=== PATIENT | male | born 1970 | race Caucasian/White ===

== ENCOUNTER 2020-12-20 19:03 | Emergency (ER) | payer OTHER, SELFPAY ==
[2020-12-20 19:13] VITALS: BP 128/70; PULSE 70; RESP 16; TEMP 36.6; O2SAT 98; BMI 28.3
[2020-12-20] MEDS: Diphth,Pertus(ACell),Tet Adult 0.5 ML SYRINGE IM (21:05)
--- NOTE | 2020-12-20 21:15 | ED.WOUNDLAC ---
HPI - Wound/Laceration General Chief Complaint: Wound/Laceration Stated Complaint: Hand lac Time Seen by Provider: 12/20/20 20:47 History of Present Illness HPI narrative: Patient complains of small laceration to the volar right wrist from a chisel, no other injury no numbness weakness or tingling no joint pains Related Data Allergies Allergy/AdvReac Type Severity Reaction Status Date / Time No Known Allergies Allergy Verified 12/20/20 19:12 Review of Systems Review of Systems: Positive for right wrist laceration Negatives are no headache no neck pain no back pain no numbness weakness or tingling no joint pains Yes all other systems are reviewed and are negative PMFSH Past Medical History Source: nursing notes reviewed Surgical History (Updated 12/20/20 @ 19:14 by Nati Mejia) H/O heart artery stent Social History Social History Advance Directives: No Physical Exam Vital Signs: Vital Signs: Last Vital Signs Temp 97.8 F 12/20/20 19:13 Pulse 70 12/20/20 19:13 Resp 16 12/20/20 19:13 BP 128/70 12/20/20 19:13 Pulse Ox 98 12/20/20 19:13 Body Mass Index 28.3 General appearance no acute distress Head is normocephalic atraumatic Neck is supple Respiratory no distress Extremities full range of motion x4 The right wrist there is a 1 cm volar superficial laceration which is not bleeding, neurovascular intact distal and full range of motion without discomfort in the rest Course Course Course Narrative: 1 cm superficial laceration of the right wrist is cleansed and irrigated with normal saline and closed with Steri-Strips Discharge Plan Discharge Clinical Impression: Laceration Patient Disposition: Home, Self-Care Additional Instructions: Small cut was cleaned and closed with Steri-Strips You get a tetanus shot Remove Steri-Strips in 2 or 3 days Return any time for redness swelling any sign of infection Interventions: ED Discharge Assessment Last Done: 12/20/20 21:22 Discharge Date/Time: 12/20/20 21:41
== END 2020-12-20 21:41 | disposition home or self-care (01) ==
PROVIDERS: Emergency Provider Emergency Medicine; PCP Physician Assistant Medical
DX: S61.511A Laceration without foreign body of right wrist, initial encounter (principal); W27.0XXA Contact with workbench tool, initial encounter; Y93.9 Activity, unspecified; Y92.9 Unspecified place or not applicable; Y99.9 Unspecified external cause status
CPT/HCPCS: 90471; 90715; 99284

== ENCOUNTER 2021-07-08 21:31 | Emergency (ER) | payer OTHER, SELFPAY ==
--- NOTE | ~2021-07-08 | XR_ITS ---
EXAMINATION: XR CHEST CLINICAL INFORMATION: Chest pain. COMPARISON: Chest radiographs dated 07/19/2008. TECHNIQUE: Frontal view of the chest was obtained. FINDINGS: No significant abnormality is noted involving the heart, lungs, mediastinum, bony thorax or soft tissues. XR/XR chest 1V IMPRESSION: No acute cardiopulmonary process.
--- NOTE | 2021-07-08 21:34 | ECG_ITS ---
Test Reason : CHEST PAIN Blood Pressure : / mmHG Vent. Rate : 075 BPM Atrial Rate : 075 BPM P-R Int : 138 ms QRS Dur : 086 ms QT Int : 410 ms P-R-T Axes : 067 -14 018 degrees QTc Int : 457 ms Normal sinus rhythm Normal ECG No previous ECGs available Referred By: Generic ED Physician Electronically Signed By:VITALIY ALVAREZ MD
[2021-07-08 21:42] VITALS: BP 171/94; PULSE 69; RESP 20; TEMP 36.6; O2SAT 98; BMI 29.0
[2021-07-08 22:03] LABS: Eosinophils Absolute Auto 0.1 X10*3/uL (0.0-0.4); Eosinophils Percent Auto 1.4 % (0-4); Imm Gran Abs Auto 0.03 X10*3/uL (0.00-0.03); Imm Gran Pct Auto 0.4 % (0.0-0.4); MANUAL DIFF FLAG SCAN; Mean Corpuscular Volume 90.4 fL (80.0-98.0); Monocytes Absolute Auto 0.5 X10*3/uL (0.1-1.2); Monocytes Percent Auto 6.7 % (2-11); PLT CLUMP 1; SCAN SMEAR FLAG 1
[2021-07-08 22:05] LABS: Basophils Percent Auto 0.3 % (0-2); Hematocrit 34.7 % (42.0-52.0); Lymphocytes Absolute Auto 1.9 X10*3/uL (1.2-4.9); Lymphocytes Percent Auto 24.4 % (20-40); Mean Corpuscular HGB Conc 34.6 g/dl (31.0-36.0); Mean Corpuscular Hemoglobin 31.3 pg (27.0-33.0); Mean Platelet Volume 11.4 fL (9.4-12.4); Neutrophils Absolute Auto 5.3 x10*3/uL (2.0-8.3); Neutrophils Percent Auto 66.8 % (45-73); Red Blood Count 3.84 X10*6/uL (4.60-5.80); Red Cell Distribution Width 13.9 % (11.0-16.0)
[2021-07-08 22:19] LABS: Anion Gap 12 (12-20); Blood Urea Nitrogen 8 mg/dL (9-16); Calcium 8.9 mg/dL (8.4-10.2); Carbon Dioxide 26 mmol/L (22-29); Chloride 98 mmol/L (96-108); Creatinine Clr Calc Pharmacy 96.3; Estimated Glomerular Filt Rate > 60; Glucose Random 223 mg/dL (60-115); Potassium 3.5 mmol/L (3.3-5.1); Sodium 132 mmol/L (135-145)
[2021-07-08 22:22] LABS: Platelet Count 84 X10*3/uL (160-400)
[2021-07-08 22:26] LABS: Troponin-I High Sensitivity 4.9 ng/L (<3.5-35.0)
[2021-07-08 22:29] LABS: SLIDE REVIEW VERIFIED
[2021-07-09 01:10] VITALS: BP 155/81; PULSE 70; RESP 18; O2SAT 99
[2021-07-09 01:48] LABS: Alanine Aminotransferase 34 U/L (0-40); Albumin Level 4.1 g/dL (3.5-5.0); Alkaline Phosphatase 139 U/L (39-117); Aspartate Amino Transferase 28 U/L (5-37); Bilirubin Direct 0.5 mg/dL (0.0-0.5); Lipase 97 U/L (8-78); Total Protein 7.4 g/dL (6.5-8.0)
[2021-07-09] MEDS: Lidocaine HCl Viscous 2 % 15 ML SOLUTION 10 ML MUCOUS MEM (02:02)
[2021-07-09] MEDS: Magnesium Hydrox/Alum Hydrox 30 ML ORAL.SUSP PO (02:02)
[2021-07-09 02:09] LABS: Troponin-I High Sensitivity 6.9 ng/L (<3.5-35.0)
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
[2021-07-09 02:42] VITALS: BP 150/90; PULSE 75; RESP 16; TEMP 37.3; O2SAT 99
== END 2021-07-09 03:43 | disposition home or self-care (01) ==
PROVIDERS: Emergency Provider Student in an Organized Health Care Education/Training Program
DX: R07.89 Other chest pain (principal); K85.90 Acute pancreatitis without necrosis or infection, unspecified; K21.9 Gastro-esophageal reflux disease without esophagitis; I25.10 Atherosclerotic heart disease of native coronary artery without angina pectoris; Z79.899 Other long term (current) drug therapy; Z79.82 Long term (current) use of aspirin; Z87.891 Personal history of nicotine dependence
CPT/HCPCS: 36415; 71045; 80048; 80076; 83690; 84484; 85025; 93005; 99284; 99285

== ENCOUNTER 2022-06-12 20:48 | Emergency (ER) | payer OTHER, SELFPAY ==
--- NOTE | ~2022-06-12 | US_ITS ---
EXAMINATION: US SCROTUM CLINICAL INFORMATION: Left testicular swelling and pain. COMPARISON: None TECHNIQUE: A sonogram of the scrotum was performed assessing merlos-scale appearance and color Doppler flow. Spectral Doppler analysis of the arterial and venous flow were performed in the testes bilaterally. FINDINGS: RIGHT: Right testicle measures 3.7 x 1.8 x 2.4 cm, volume 8.6 mL. There is heterogeneous echotexture to the testicle but no discrete focal testicular parenchymal lesions are visualized. Spectral Doppler analysis of the arterial and venous flow is normal in the right testis. Right epididymal head is normal in size. No right hydrocele or varicocele is seen. Right epididymal Doppler flow is normal. Tiny scrotal bryan measuring 3 mm in size incidentally seen in the right scrotum. LEFT: Left testicle measures 4.9 x 2.1 x 3.1 cm, volume 15 mL. No focal testicular parenchymal lesions are visualized. Spectral Doppler analysis of the arterial and venous flow is normal in the left testis. Left epididymal head is normal in size with a 0.3 cm tiny epididymal cyst incidentally noted. No left hydrocele or varicocele is seen. Left epididymal Doppler flow is normal. US/US scrotum doppler IMPRESSION: No acute abnormality seen in the left testicle. The right testicle is heterogeneous echotexture and somewhat atrophic possibly due to old injury or infection.
--- NOTE | ~2022-06-12 | US_ITS ---
EXAMINATION: US SCROTUM CLINICAL INFORMATION: Left testicular swelling and pain. COMPARISON: None TECHNIQUE: A sonogram of the scrotum was performed assessing merlos-scale appearance and color Doppler flow. Spectral Doppler analysis of the arterial and venous flow were performed in the testes bilaterally. FINDINGS: RIGHT: Right testicle measures 3.7 x 1.8 x 2.4 cm, volume 8.6 mL. There is heterogeneous echotexture to the testicle but no discrete focal testicular parenchymal lesions are visualized. Spectral Doppler analysis of the arterial and venous flow is normal in the right testis. Right epididymal head is normal in size. No right hydrocele or varicocele is seen. Right epididymal Doppler flow is normal. Tiny scrotal bryan measuring 3 mm in size incidentally seen in the right scrotum. LEFT: Left testicle measures 4.9 x 2.1 x 3.1 cm, volume 15 mL. No focal testicular parenchymal lesions are visualized. Spectral Doppler analysis of the arterial and venous flow is normal in the left testis. Left epididymal head is normal in size with a 0.3 cm tiny epididymal cyst incidentally noted. No left hydrocele or varicocele is seen. Left epididymal Doppler flow is normal. US/US scrotum IMPRESSION: No acute abnormality seen in the left testicle. The right testicle is heterogeneous echotexture and somewhat atrophic possibly due to old injury or infection.
--- NOTE | 2022-06-12 20:55 | ED.MALEGU ---
HPI - Male Genitourinary General Chief complaint: General Medical <LORENA Culp - Last Filed: 06/12/22 20:59> Stated complaint: Testicular pain and swelling <LORENA Culp - Last Filed: 06/12/22 20:59> Time Seen by Provider: 06/13/22 05:03 <LORENA Culp - Last Filed: 06/12/22 20:59> Source: patient <Patrick Fuentes MD - Last Filed: 06/13/22 05:16> Mode of arrival: ambulatory <Patrick Fuentes MD - Last Filed: 06/13/22 05:16> Limitations: no limitations <Patrick Fuentes MD - Last Filed: 06/13/22 05:16> History of Present Illness HPI Narrative: 52-year-old male presents with left testicular pain. Symptoms started yesterday. The symptoms are constant. There is no clear relieving or exacerbating features. He denies any dysuria, frequency, urgency, hematuria. He rates the pain as a 1 to 2/10. The pain does not radiate. It is not associated with nausea or vomiting. He notes that his left testicle is always been enlarged compared to his right. Patient denies a previous history of such symptoms. <Patrick Fuentes MD - Last Filed: 06/13/22 05:16> Related Data Home medications: Home Medications Medication Instructions Recorded Confirmed aspirin 81 mg tablet,delayed 1 tab PO DAILY 07/08/21 07/08/21 release atorvastatin 40 mg tablet 1 tab PO DAILY 07/08/21 07/08/21 clopidogrel 75 mg tablet 1 tab PO DAILY 07/08/21 07/08/21 escitalopram oxalate 10 mg tablet 1 tab PO DAILY 07/08/21 07/08/21 famotidine 20 mg tablet 1 tab PO BID 07/08/21 07/08/21 furosemide 20 mg tablet 1 tab PO DAILY 07/08/21 07/08/21 gabapentin 800 mg tablet 1 tab PO TID 07/08/21 07/08/21 isosorbide mononitrate 30 mg 3 tab PO DAILY 07/08/21 07/08/21 tablet,extended release 24 hr spironolactone 50 mg tablet 1 tab PO DAILY 07/08/21 07/08/21 <LORENA Culp - Last Filed: 06/12/22 20:59> Allergies/Adverse reactions: Allergies Allergy/AdvReac Type Severity Reaction Status Date / Time insect venom [insect bites] Allergy Swelling Verified 06/12/22 21:00 poison shama extract Allergy Swelling Verified 06/12/22 21:00 <LORENA Culp - Last Filed: 06/12/22 20:59> Review of Systems Review of Systems: CONSTITUTIONAL: Denies weight loss, fever and chills. HEENT: Denies changes in vision and hearing. RESPIRATORY: Denies SOB and cough. CV: Denies palpitations no CP. GI: Denies abdominal pain, nausea, vomiting and diarrhea. : Denies dysuria and urinary frequency. MSK: Denies myalgia and joint pain. SKIN: Denies rash and pruritus. NEUROLOGICAL: Denies headache and syncope. PSYCHIATRIC: Denies recent changes in mood. Denies anxiety and depression. All other ROS are negative unless in HPI <Patrick Fuentes MD - Last Filed: 06/13/22 05:16> [facility] Past Medical History Medical History: Medical History Diabetes Hyperlipidemia Hypertension Peripheral neuropathy Sciatic nerve pain <LORENA Culp - Last Filed: 06/12/22 20:59> Surgical History: Surgical History H/O heart artery stent <LORENA Culp - Last Filed: 06/12/22 20:59> Social History Social History: Social History Alcohol intake: unknown Patient Tobacco Use Status: Former Tobacco user Substance Use Type: Marijuana Advance Directives: No Advance Directives Information Provided: No <LORENA Culp - Last Filed: 06/12/22 20:59> Physical Exam Vital Signs: Vital Signs: Last Vital Signs Temp 98.7 F 06/12/22 20:56 Pulse 76 06/12/22 20:56 Resp 18 06/12/22 20:56 BP 144/66 H 06/12/22 20:56 Pulse Ox 98 06/12/22 20:56 O2 Del Method 06/12/22 20:56 BMI result Body Mass Index 28.2 <LORENA Culp - Last Filed: 06/12/22 20:59> Vital Signs: Last Vital Signs Temp 98.7 F 06/12/22 20:56 Pulse 76 06/12/22 20:56 Resp 18 06/12/22 20:56 BP 144/66 H 06/12/22 20:56 Pulse Ox 98 06/12/22 20:56 O2 Del Method 06/12/22 20:56 BMI result Body Mass Index 28.2 GEN: Well developed, no acute distress, alert, oriented HEENT: Normocephalic, atraumatic, normal external ears, nose appears normal Eyes: Normal to appearance Neck: Supple, no lymphadenopathy Respiratory: Talks in complete sentences, no respiratory distress Extremities: No clubbing cyanosis or edema Neurologic: No focal neurologic deficits, cranial nerves 2-12 intact, gait normal Skin: No rash : Left testicle enlarged compared to right. Positive bilateral cremasteric reflexes. No tenderness. No lymphadenopathy. No evidence of hernia. No penile discharge. Otherwise normal exam <Patrick Fuentes MD - Last Filed: 06/13/22 05:16> Course Course Course Narrative: [id number] 52-year-old male presenting to the ER with complaints left testicular swelling that has been present for the past few years although over the past few days has developed some pain. Patient is concern for his testicle being twisted such as testicular torsion. His on told him to have blood work and imaging obtained. He he denies any thoughts of STDs. Denies fevers, nausea/vomiting, flank pain, back pain, abnormal discharge, dysuria hematuria, abnormal lesions to the penile area or any other symptoms complaints or concerns at this time Plan: Will obtain labs, UA, gonorrhea chlamydia urine, ultrasound of testicle patient will be sent back to the waiting room to be evaluated in the ED. <LORENA Culp - Last Filed: 06/12/22 20:59> Reevaluation(s) Reevaluation #1: 52-year-old male presents with left testicular pain. Examination revealed positive bilateral cremasteric reflexes. He had enlarged left testicle compared to right. Nontender. The rest exam is unremarkable. Ultrasound did not demonstrate any evidence of torsion although patient certainly could be sorting and the charting. This was discussed with the patient on reasons to return as well as recent follow-up with a urologist. Patient denied any traumatic injury or falls. At this time, the workup is complete. Will provide patient with Tylenol and ibuprofen and discharged with urology follow-up. <Patrick Fuentes MD - Last Filed: 06/13/22 05:16> Time: 05:11 <Patrick Fuentes MD - Last Filed: 06/13/22 05:16> Medical Decision Making Medical Decision Making [facility] Narrative: 52-year-old male presents with left testicular pain. Patient will have an ultrasound, laboratory analysis to help differentiate from multiple possible diagnoses. <Patrick Fuentes MD - Last Filed: 06/13/22 05:16> Differential Diagnosis Differential Diagnoses: The differential diagnosis associated with the presentation includes (Torsion, orchitis, urethritis, hernia, epididymitis) <Patrick Fuentes MD - Last Filed: 06/13/22 05:16> Left testicular pain <Patrick Fuentes MD - Last Filed: 06/13/22 05:16> Lab Data [facility] Lab Attestation statement: I reviewed the patient's lab results. <Patrick Fuentes MD - Last Filed: 06/13/22 05:16> Result Diagrams: 06/12/22 21:59 06/12/22 21:59 <LORENA Culp - Last Filed: 06/12/22 20:59> Labs: Lab Results 06/12/22 06/12/22 06/12/22 Range/Units 21:59 21:59 21:59 WBC 8.0 (4.8-10.8) X10*3/uL RBC 3.95 L (4.60-5.80) X10*6/uL Hgb 12.0 L (14.0-18.0) g/dl Hct 35.5 L (42.0-52.0) % MCV 89.9 (80.0-98.0) fL MCH 30.4 (27.0-33.0) pg MCHC 33.8 (31.0-36.0) g/dl RDW 13.6 (11.0-16.0) % Plt Count 83 L (160-400) X10*3/uL MPV 11.7 (9.4-12.4) fL Immature Gran % (Auto) 0.5 H (0.0-0.4) % Neut % (Auto) 65.4 (45-73) % Lymph % (Auto) 26.5 (20-40) % Hendry % (Auto) 5.5 (2-11) % Eos % (Auto) 1.6 (0-4) % Baso % (Auto) 0.5 (0-2) % Lymph # (Auto) 2.1 (1.2-4.9) X10*3/uL Hendry # (Auto) 0.4 (0.1-1.2) X10*3/uL Eos # (Auto) 0.1 (0.0-0.4) X10*3/uL Baso # (Auto) 0.0 (0.0-0.2) X10*3/uL Abs Immat Gran (auto) 0.04 H (0.00-0.03) X10*3/uL Absolute Neuts (auto) 5.3 (2.0-8.3) x10*3/uL Absolute Nucleated RBC 0.000 (0.0-0.012) X10*3/uL Nucleated RBC % (auto) 0.0 (0.0-0.2) /100WBC PT 15.5 H (10.0-13.1) SEC INR 1.3 H (0.9-1.1) Sodium 137 (135-145) mmol/L Potassium 3.8 (3.3-5.1) mmol/L Chloride 105 (96-108) mmol/L Carbon Dioxide 24 (22-29) mmol/L Anion Gap 12 (12-20) BUN 10 (9-16) mg/dL Creatinine 0.82 (0.5-1.4) mg/dL Estim Creat Clear Calc 104.3 Estimated GFR > 60 Random Glucose 159 H (60-115) mg/dL Calcium 8.8 (8.4-10.2) mg/dL Magnesium 1.6 (1.6-2.6) mg/dL Total Bilirubin 0.7 (0.0-1.0) mg/dL AST 17 (5-37) U/L ALT 16 (0-40) U/L Alkaline Phosphatase 127 H (39-117) U/L Total Protein 6.9 (6.5-8.0) g/dL Albumin 4.0 (3.5-5.0) g/dL Urine Color Urine Appearance Urine pH (5.0-9.0) Ur Specific Hope (1.005-1.025) Urine Protein (Neg-Trace) mg/dL Urine Glucose (UA) (Negative) mg/dL Urine Ketones (Negative) mg/dL Urine Blood (Negative) Urine Nitrite (Negative) Ur Leukocyte Esterase (Negative) 06/13/22 Range/Units 00:27 WBC (4.8-10.8) X10*3/uL RBC (4.60-5.80) X10*6/uL Hgb (14.0-18.0) g/dl Hct (42.0-52.0) % MCV (80.0-98.0) fL MCH (27.0-33.0) pg MCHC (31.0-36.0) g/dl RDW (11.0-16.0) % Plt Count (160-400) X10*3/uL MPV (9.4-12.4) fL Immature Gran % (Auto) (0.0-0.4) % Neut % (Auto) (45-73) % Lymph % (Auto) (20-40) % Hendry % (Auto) (2-11) % Eos % (Auto) (0-4) % Baso % (Auto) (0-2) % Lymph # (Auto) (1.2-4.9) X10*3/uL Hendry # (Auto) (0.1-1.2) X10*3/uL Eos # (Auto) (0.0-0.4) X10*3/uL Baso # (Auto) (0.0-0.2) X10*3/uL Abs Immat Gran (auto) (0.00-0.03) X10*3/uL Absolute Neuts (auto) (2.0-8.3) x10*3/uL Absolute Nucleated RBC (0.0-0.012) X10*3/uL Nucleated RBC % (auto) (0.0-0.2) /100WBC PT (10.0-13.1) SEC INR (0.9-1.1) Sodium (135-145) mmol/L Potassium (3.3-5.1) mmol/L Chloride (96-108) mmol/L Carbon Dioxide (22-29) mmol/L Anion Gap (12-20) BUN (9-16) mg/dL Creatinine (0.5-1.4) mg/dL Estim Creat Clear Calc Estimated GFR Random Glucose (60-115) mg/dL Calcium (8.4-10.2) mg/dL Magnesium (1.6-2.6) mg/dL Total Bilirubin (0.0-1.0) mg/dL AST (5-37) U/L ALT (0-40) U/L Alkaline Phosphatase (39-117) U/L Total Protein (6.5-8.0) g/dL Albumin (3.5-5.0) g/dL Urine Color Yellow Urine Appearance Clear Urine pH 6.0 (5.0-9.0) Ur Specific Hope 1.010 (1.005-1.025) Urine Protein Negative (Neg-Trace) mg/dL Urine Glucose (UA) Negative (Negative) mg/dL Urine Ketones Negative (Negative) mg/dL Urine Blood Negative (Negative) Urine Nitrite Negative (Negative) Ur Leukocyte Esterase Negative (Negative) <LORENA Culp - Last Filed: 06/12/22 20:59> Lab Results 06/12/22 06/12/22 06/12/22 Range/Units 21:59 21:59 21:59 WBC 8.0 (4.8-10.8) X10*3/uL RBC 3.95 L (4.60-5.80) X10*6/uL Hgb 12.0 L (14.0-18.0) g/dl Hct 35.5 L (42.0-52.0) % MCV 89.9 (80.0-98.0) fL MCH 30.4 (27.0-33.0) pg MCHC 33.8 (31.0-36.0) g/dl RDW 13.6 (11.0-16.0) % Plt Count 83 L (160-400) X10*3/uL MPV 11.7 (9.4-12.4) fL Immature Gran % (Auto) 0.5 H (0.0-0.4) % Neut % (Auto) 65.4 (45-73) % Lymph % (Auto) 26.5 (20-40) % Hendry % (Auto) 5.5 (2-11) % Eos % (Auto) 1.6 (0-4) % Baso % (Auto) 0.5 (0-2) % Lymph # (Auto) 2.1 (1.2-4.9) X10*3/uL Hendry # (Auto) 0.4 (0.1-1.2) X10*3/uL Eos # (Auto) 0.1 (0.0-0.4) X10*3/uL Baso # (Auto) 0.0 (0.0-0.2) X10*3/uL Abs Immat Gran (auto) 0.04 H (0.00-0.03) X10*3/uL Absolute Neuts (auto) 5.3 (2.0-8.3) x10*3/uL Absolute Nucleated RBC 0.000 (0.0-0.012) X10*3/uL Nucleated RBC % (auto) 0.0 (0.0-0.2) /100WBC PT 15.5 H (10.0-13.1) SEC INR 1.3 H (0.9-1.1) Sodium 137 (135-145) mmol/L Potassium 3.8 (3.3-5.1) mmol/L Chloride 105 (96-108) mmol/L Carbon Dioxide 24 (22-29) mmol/L Anion Gap 12 (12-20) BUN 10 (9-16) mg/dL Creatinine 0.82 (0.5-1.4) mg/dL Estim Creat Clear Calc 104.3 Estimated GFR > 60 Random Glucose 159 H (60-115) mg/dL Calcium 8.8 (8.4-10.2) mg/dL Magnesium 1.6 (1.6-2.6) mg/dL Total Bilirubin 0.7 (0.0-1.0) mg/dL AST 17 (5-37) U/L ALT 16 (0-40) U/L Alkaline Phosphatase 127 H (39-117) U/L Total Protein 6.9 (6.5-8.0) g/dL Albumin 4.0 (3.5-5.0) g/dL Urine Color Urine Appearance Urine pH (5.0-9.0) Ur Specific Hope (1.005-1.025) Urine Protein (Neg-Trace) mg/dL Urine Glucose (UA) (Negative) mg/dL Urine Ketones (Negative) mg/dL Urine Blood (Negative) Urine Nitrite (Negative) Ur Leukocyte Esterase (Negative) 06/13/22 Range/Units 00:27 WBC (4.8-10.8) X10*3/uL RBC (4.60-5.80) X10*6/uL Hgb (14.0-18.0) g/dl Hct (42.0-52.0) % MCV (80.0-98.0) fL MCH (27.0-33.0) pg MCHC (31.0-36.0) g/dl RDW (11.0-16.0) % Plt Count (160-400) X10*3/uL MPV (9.4-12.4) fL Immature Gran % (Auto) (0.0-0.4) % Neut % (Auto) (45-73) % Lymph % (Auto) (20-40) % Hendry % (Auto) (2-11) % Eos % (Auto) (0-4) % Baso % (Auto) (0-2) % Lymph # (Auto) (1.2-4.9) X10*3/uL Hendry # (Auto) (0.1-1.2) X10*3/uL Eos # (Auto) (0.0-0.4) X10*3/uL Baso # (Auto) (0.0-0.2) X10*3/uL Abs Immat Gran (auto) (0.00-0.03) X10*3/uL Absolute Neuts (auto) (2.0-8.3) x10*3/uL Absolute Nucleated RBC (0.0-0.012) X10*3/uL Nucleated RBC % (auto) (0.0-0.2) /100WBC PT (10.0-13.1) SEC INR (0.9-1.1) Sodium (135-145) mmol/L Potassium (3.3-5.1) mmol/L Chloride (96-108) mmol/L Carbon Dioxide (22-29) mmol/L Anion Gap (12-20) BUN (9-16) mg/dL Creatinine (0.5-1.4) mg/dL Estim Creat Clear Calc Estimated GFR Random Glucose (60-115) mg/dL Calcium (8.4-10.2) mg/dL Magnesium (1.6-2.6) mg/dL Total Bilirubin (0.0-1.0) mg/dL AST (5-37) U/L ALT (0-40) U/L Alkaline Phosphatase (39-117) U/L Total Protein (6.5-8.0) g/dL Albumin (3.5-5.0) g/dL Urine Color Yellow Urine Appearance Clear Urine pH 6.0 (5.0-9.0) Ur Specific Hope 1.010 (1.005-1.025) Urine Protein Negative (Neg-Trace) mg/dL Urine Glucose (UA) Negative (Negative) mg/dL Urine Ketones Negative (Negative) mg/dL Urine Blood Negative (Negative) Urine Nitrite Negative (Negative) Ur Leukocyte Esterase Negative (Negative) <Patrick Fuentes MD - Last Filed: 06/13/22 05:16> Independent Interpretation I performed an independent interpretation of an: Ultrasound (No evidence of torsion) <Patrick Fuentes MD - Last Filed: 06/13/22 05:16> Radiology Impression Discussion of test interpretation with radiology: I have reviewed the radiologist's reading. (IMPRESSION: No acute abnormality seen in the left testicle. The right testicle is heterogeneous echotexture and somewhat atrophic possibly due to old injury or infection. Dictated By:Sharif Chaidez MDSigned By:<Electronically signed by Sharif Chaidez MD in [place]>06/12/22 [id number] DD/DT:) <Patrick Fuentes MD - Last Filed: 06/13/22 05:16> Prescription Management I considered prescription management with: Pain Medication <Patrick Fuentes MD - Last Filed: 06/13/22 05:16> Chronic Conditions Patient?s care impacted by: Hypertension <Patrick Fuentes MD - Last Filed: 06/13/22 05:16> Discharge Plan Discharge Clinical Impression: Left testicular pain <LORENA Culp - Last Filed: 06/12/22 20:59> Patient Disposition: Home, Self-Care <LORENA Culp - Last Filed: 06/12/22 20:59> Instructions: Testicle Pain (ED) <LORENA Culp - Last Filed: 06/12/22 20:59> Prescriptions: No Action atorvastatin 40 mg tablet 1 tab PO DAILY isosorbide mononitrate 30 mg tablet extended release 24 hr 3 tab PO DAILY clopidogrel 75 mg tablet 1 tab PO DAILY aspirin 81 mg tablet,delayed release (DR/EC) 1 tab PO DAILY famotidine 20 mg tablet 1 tab PO BID gabapentin 800 mg tablet 1 tab PO TID furosemide 20 mg tablet 1 tab PO DAILY spironolactone 50 mg tablet 1 tab PO DAILY escitalopram oxalate 10 mg tablet 1 tab PO DAILY <LORENA Culp - Last Filed: 06/12/22 20:59> Referrals: Song Wayne MD [Physician] - <LORENA Culp - Last Filed: 06/12/22 20:59>
[2022-06-12 20:56] VITALS: BP 144/66; PULSE 76; RESP 18; TEMP 37.1; O2SAT 98; BMI 28.2
[2022-06-12 22:05] LABS: MANUAL DIFF FLAG NO
[2022-06-12 22:06] LABS: PLT CLUMP 1; SCAN SMEAR FLAG 1
[2022-06-12 22:08] LABS: Basophils Percent Auto 0.5 % (0-2); Eosinophils Absolute Auto 0.1 X10*3/uL (0.0-0.4); Eosinophils Percent Auto 1.6 % (0-4); Hematocrit 35.5 % (42.0-52.0); Imm Gran Abs Auto 0.04 X10*3/uL (0.00-0.03); Imm Gran Pct Auto 0.5 % (0.0-0.4); Lymphocytes Absolute Auto 2.1 X10*3/uL (1.2-4.9); Lymphocytes Percent Auto 26.5 % (20-40); Mean Corpuscular HGB Conc 33.8 g/dl (31.0-36.0); Mean Corpuscular Hemoglobin 30.4 pg (27.0-33.0); Mean Corpuscular Volume 89.9 fL (80.0-98.0); Mean Platelet Volume 11.7 fL (9.4-12.4); Monocytes Absolute Auto 0.4 X10*3/uL (0.1-1.2); Monocytes Percent Auto 5.5 % (2-11); Neutrophils Absolute Auto 5.3 x10*3/uL (2.0-8.3); Neutrophils Percent Auto 65.4 % (45-73); Red Blood Count 3.95 X10*6/uL (4.60-5.80); Red Cell Distribution Width 13.6 % (11.0-16.0)
[2022-06-12 22:12] LABS: INTERNATIONAL NORM RATIO 1.3 (0.9-1.1); Prothrombin Time 15.5 SEC (10.0-13.1)
[2022-06-12 22:14] LABS: Platelet Count 83 X10*3/uL (160-400)
[2022-06-12 22:21] LABS: Alanine Aminotransferase 16 U/L (0-40); Alkaline Phosphatase 127 U/L (39-117); Anion Gap 12 (12-20); Aspartate Amino Transferase 17 U/L (5-37); Bilirubin Total 0.7 mg/dL (0.0-1.0); Blood Urea Nitrogen 10 mg/dL (9-16); Calcium 8.8 mg/dL (8.4-10.2); Carbon Dioxide 24 mmol/L (22-29); Chloride 105 mmol/L (96-108); Creatinine Clr Calc Pharmacy 104.3; Estimated Glomerular Filt Rate > 60; Glucose Random 159 mg/dL (60-115); Magnesium 1.6 mg/dL (1.6-2.6); Potassium 3.8 mmol/L (3.3-5.1); Sodium 137 mmol/L (135-145); Total Protein 6.9 g/dL (6.5-8.0)
[2022-06-13 00:36] LABS: Appearance Urine Clear; Color Urine Yellow; Glucose Urine UA Negative (Negative); Leukocyte Esterase Urine Negative (Negative); Nitrite Urine Negative (Negative); Urine Blood Negative (Negative); Urine Ketones Negative (Negative); Urine Protein Negative (Neg-Trace)
[2022-06-13] MEDS: Acetaminophen 325 MG TABLET 975 MG PO (05:26)
[2022-06-13 05:31] VITALS: BP 128/76; PULSE 54; RESP 16; TEMP 36.7; O2SAT 98
--- NOTE | 2022-06-13 05:36 | PC.NURSE ---
Pt. in room, sitting on bed. Pt. was up to use bathroom. Pt. medicated with tylenol. Pt. declined ibuprofen d/t heart condition and stent.
[2022-06-13 11:10] LABS: CT PCR NOT DETECTED (Not Detect.); NG PCR NOT DETECTED (Not Detect.)
== END 2022-06-13 05:37 | disposition home or self-care (01) ==
PROVIDERS: Physician Assistant Medical; Emergency Provider Emergency Medicine
DX: N50.812 Left testicular pain (principal); I10 Essential (primary) hypertension; E11.9 Type 2 diabetes mellitus without complications; E78.5 Hyperlipidemia, unspecified; F12.90 Cannabis use, unspecified, uncomplicated; Z87.891 Personal history of nicotine dependence; Z79.02 Long term (current) use of antithrombotics/antiplatelets; Z79.82 Long term (current) use of aspirin; Z79.899 Other long term (current) drug therapy
CPT/HCPCS: 0353U; 36415; 76870; 80053; 81003; 83735; 85025; 85610; 93975; 99284

== ENCOUNTER → 2022-07-17 15:31 | Outpatient (BNVA) | payer OTHER, SELFPAY | PROVIDERS: PCP Physician Assistant Medical; Visit Provider Nurse Practitioner Family | DX: N40.0 Benign prostatic hyperplasia without lower urinary tract symptoms (principal); R39.12 Poor urinary stream; N50.3 Cyst of epididymis; N52.9 Male erectile dysfunction, unspecified | CPT/HCPCS: 99202 ==

== ENCOUNTER 2022-07-29 15:29 | Outpatient (REF) | payer OTHER, SELFPAY ==
--- NOTE | ~2022-07-29 | US_ITS ---
EXAMINATION: US RETROPERITONEAL COMPLETE (RENAL) CLINICAL INFORMATION: Poor urinary stream. COMPARISON: None available. TECHNIQUE: Real-time imaging of the kidneys and bladder. FINDINGS: RIGHT KIDNEY: 11.0 x 5.5 x 7.0 cm (SAG x AP x TRV). The kidney is normal in size, contour, and echogenicity. Renal cortical thickness is normal. No calculi or focal parenchymal lesions. No hydronephrosis. LEFT KIDNEY: 11.8 x 4.5 x 2.5 cm (SAG x AP x TRV). The kidney is normal in size, contour, and echogenicity. Renal cortical thickness is normal. No calculi or focal parenchymal lesions. No hydronephrosis. BLADDER: Well distended and normal. Bilateral ureteral jets are demonstrated. Prevoid bladder volume is 266 mL. Postvoid bladder volume is 6.0 mL. ADDITIONAL FINDINGS: Prostate is normal sized at 22.4 cm but there is a 1.3 x 1.5 x 1.2 cm hypoechoic area within the prostate which could be a cyst. However, a separate mass cannot be excluded and dedicated prostate ultrasound may be of value. US/US retroperitoneal comp IMPRESSION: 1. Normal-appearing kidneys. 2. Hypoechoic area in the prostate which could be a cyst. A separate mass cannot be excluded and dedicated prostate ultrasound may be of value.
== END 2022-07-29 15:30 | disposition home or self-care (01) ==
LOC: HO.US 15:29
PROVIDERS: PCP Physician Assistant Medical; Visit Provider Nurse Practitioner Family
DX: R39.12 Poor urinary stream (principal)
CPT/HCPCS: 76770

== ENCOUNTER → 2022-10-06 08:55 | Outpatient (BNVA) | payer OTHER, SELFPAY | PROVIDERS: PCP Physician Assistant Medical; Visit Provider Nurse Practitioner Family | DX: N40.1 Benign prostatic hyperplasia with lower urinary tract symptoms (principal); R39.12 Poor urinary stream; N52.9 Male erectile dysfunction, unspecified | CPT/HCPCS: 51798; 99212 ==

== ENCOUNTER 2023-02-10 19:56 | Emergency (ER) | payer OTHER, SELFPAY ==
--- NOTE | ~2023-02-10 | US_ITS ---
EXAMINATION: US SCROTUM CLINICAL INFORMATION: Pain. COMPARISON: Previous exam June 2022 TECHNIQUE: A sonogram of the scrotum was performed assessing merlos-scale appearance and color Doppler flow. Spectral Doppler analysis of the arterial and venous flow were performed in the testes bilaterally. FINDINGS: RIGHT: Right testicle measures 3.6 x 1.7 x 2 cm, volume 8.7 mL. Testicular echotexture is heterogeneous. No focal testicular parenchymal lesions are visualized. Spectral Doppler analysis of the arterial and venous flow is normal in the right testis. The right epididymis appears prominent with small calcifications. There is a 3 mm right epididymal head cyst. No right hydrocele or varicocele is seen. Right epididymal Doppler flow is normal. LEFT: Left testicle measures 4.8 x 2.3 x 3.1 cm, volume 18.5 mL. No focal testicular parenchymal lesions are visualized. Spectral Doppler analysis of the arterial and venous flow is normal in the left testis. Left epididymal head is normal in size. No left hydrocele or varicocele is seen. Left epididymal Doppler flow is normal. US/US scrotum IMPRESSION: Small heterogeneous appearing right testicle similar to June 2022 exam. The right epididymis is prominent with calcifications. This may represent old or chronic epididymoorchitis.
--- NOTE | ~2023-02-10 | US_ITS ---
EXAMINATION: US SCROTUM CLINICAL INFORMATION: Pain. COMPARISON: Previous exam June 2022 TECHNIQUE: A sonogram of the scrotum was performed assessing merlos-scale appearance and color Doppler flow. Spectral Doppler analysis of the arterial and venous flow were performed in the testes bilaterally. FINDINGS: RIGHT: Right testicle measures 3.6 x 1.7 x 2 cm, volume 8.7 mL. Testicular echotexture is heterogeneous. No focal testicular parenchymal lesions are visualized. Spectral Doppler analysis of the arterial and venous flow is normal in the right testis. The right epididymis appears prominent with small calcifications. There is a 3 mm right epididymal head cyst. No right hydrocele or varicocele is seen. Right epididymal Doppler flow is normal. LEFT: Left testicle measures 4.8 x 2.3 x 3.1 cm, volume 18.5 mL. No focal testicular parenchymal lesions are visualized. Spectral Doppler analysis of the arterial and venous flow is normal in the left testis. Left epididymal head is normal in size. No left hydrocele or varicocele is seen. Left epididymal Doppler flow is normal. US/US scrotum doppler IMPRESSION: Small heterogeneous appearing right testicle similar to June 2022 exam. The right epididymis is prominent with calcifications. This may represent old or chronic epididymoorchitis.
[2023-02-10 20:07] VITALS: BP 121/81; PULSE 63; RESP 20; TEMP 36.5; O2SAT 97; BMI 27.4
--- NOTE | 2023-02-10 20:08 | ED.GENADULT ---
HPI - General Adult General Chief complaint: Urogenital-Male Stated complaint: groin pain Related Data Home Medications Medication Instructions Recorded Confirmed atorvastatin 40 mg tablet 1 tab PO DAILY 07/08/21 10/07/22 clopidogrel 75 mg tablet 1 tab PO DAILY 07/08/21 10/07/22 famotidine 20 mg tablet 1 tab PO BID 07/08/21 10/07/22 furosemide 20 mg tablet 1 tab PO DAILY 07/08/21 10/07/22 isosorbide mononitrate 30 mg 3 tab PO DAILY 07/08/21 10/07/22 tablet,extended release 24 hr spironolactone 50 mg tablet 1 tab PO DAILY 07/08/21 10/07/22 metformin 500 mg tablet,extended 500 mg PO BID 07/17/22 10/07/22 release 24 hr tamsulosin 0.4 mg capsule 0.4 mg PO BEDTIME 07/17/22 10/07/22 gabapentin 300 mg capsule mg PO 10/06/22 10/07/22 multivitamin 1 tab PO DAILY 10/06/22 10/07/22 Previous Rx's Medication Instructions Recorded tadalafil 5 mg tablet (Cialis) 5 mg PO DAILY 30 days #30 tabs 07/17/22 Allergies Allergy/AdvReac Type Severity Reaction Status Date / Time insect venom [insect bites] Allergy Swelling Verified 02/10/23 20:07 poison shama extract Allergy Swelling Verified 02/10/23 20:07 [facility] Past Medical History Medical History Diabetes Hyperlipidemia Hypertension Peripheral neuropathy Sciatic nerve pain Surgical History H/O heart artery stent Social History Social History Alcohol intake: never Patient Tobacco Use Status: Former Tobacco user Smoked in Last 30 Days: No Use of substances other than those prescribed or required for medical reasons: No Substance Use Type: Marijuana Advance Directives: No Advance Directives Information Provided: No Physical Exam ED Vital Signs: BMI result Body Mass Index 27.4 Course Course Course Narrative: This is an RME: Additional HPI, ROS, PE not included below will be deferred to primary provider. This is a [id number], , presenting to the emergency department with a complaint of right testicular pain, and groin itchiness x 2 days. He is not sexually active. Also endorsing pain with urination. No fevers or chills. No nausea or vomiting. States that his right testicle is ?collapsed? and is concerned that it is twisted. Unable to visualize region due to limited privacy in triage. Plan: Labs, UA, ultrasound Reevaluation(s) Reevaluation #1: pt eloped prior to being fully evaluated by primary provider. Medications Administered Discontinued Medications Generic Name Dose Route Start Last Admin Trade Name Freq PRN Reason Stop Dose Admin Acetaminophen 975 mg 02/11/23 03:00 02/11/23 03:11 Acetaminophen 325 Mg Tablet PO 02/11/23 03:01 975 mg ONCE ONE Administration Ibuprofen 400 mg 02/11/23 03:00 02/11/23 03:13 Ibuprofen 400 Mg Tablet PO 02/11/23 03:01 Not Given ONCE ONE Medical Decision Making Lab Data 02/10/23 20:02/10/23 20:23 Labs: Lab Results 02/10/23 02/11/23 Range/Units 20: 03:04 WBC 5.1 (4.8-10.8) X10*3/uL RBC 4.01 L (4.60-5.80) X10*6/uL Hgb 12.6 L (14.0-18.0) g/dl Hct 36.9 L (42.0-52.0) % MCV 92.0 (80.0-98.0) fL MCH 31.4 (27.0-33.0) pg MCHC 34.1 (31.0-36.0) g/dl RDW 14.2 (11.0-16.0) % Plt Count 78 L (160-400) X10*3/uL MPV 12.1 (9.4-12.4) fL Immature Gran % (Auto) 0.2 (0.0-0.4) % Neut % (Auto) 54.0 (45-73) % Lymph % (Auto) 36.7 (20-40) % [place] % (Auto) 6.7 (2-11) % Eos % (Auto) 1.8 (0-4) % Baso % (Auto) 0.6 (0-2) % Lymph # (Auto) 1.9 (1.2-4.9) X10*3/uL [place] # (Auto) 0.3 (0.1-1.2) X10*3/uL Eos # (Auto) 0.1 (0.0-0.4) X10*3/uL Baso # (Auto) 0.0 (0.0-0.2) X10*3/uL Abs Immat Gran (auto) 0.01 (0.00-0.03) X10*3/uL Absolute Neuts (auto) 2.8 (2.0-8.3) x10*3/uL Absolute Nucleated RBC 0.000 (0.0-0.012) X10*3/uL Nucleated RBC % (auto) 0.0 (0.0-0.2) /100WBC Sodium 140 (135-145) mmol/L Potassium 4.0 (3.3-5.1) mmol/L Chloride 104 (96-108) mmol/L Carbon Dioxide 25 (22-29) mmol/L Anion Gap 15 (12-20) BUN 10 (9-16) mg/dL Creatinine 0.84 (0.5-1.4) mg/dL Estim Creat Clear Calc 99.4 Estimated GFR > 60 Random Glucose 117 H (60-115) mg/dL Calcium 9.4 D (8.4-10.2) mg/dL Total Bilirubin 0.5 (0.0-1.0) mg/dL Direct Bilirubin 0.2 (0.0-0.5) mg/dL AST 19 (5-37) U/L ALT 16 (0-40) U/L Alkaline Phosphatase 97 (39-117) U/L Total Protein 7.6 (6.5-8.0) g/dL Albumin 4.3 (3.5-5.0) g/dL Urine Color Yellow Urine Appearance Clear Urine pH 6.0 (5.0-9.0) Ur Specific [place] 1.025 (1.005-1.025) Urine Protein Negative (Neg-Trace) mg/dL Urine Glucose (UA) Negative (Negative) mg/dL Urine Ketones Trace (Negative) mg/dL Urine Blood Negative (Negative) Urine Nitrite Negative (Negative) Ur Leukocyte Esterase Negative (Negative) Discharge Plan Discharge Clinical Impression: Pain in right testicle Patient Disposition: Left W/O Completing Treatment Prescriptions: No Action atorvastatin 40 mg tablet 1 tab PO DAILY isosorbide mononitrate 30 mg tablet extended release 24 hr 3 tab PO DAILY clopidogrel 75 mg tablet 1 tab PO DAILY famotidine 20 mg tablet 1 tab PO BID furosemide 20 mg tablet 1 tab PO DAILY spironolactone 50 mg tablet 1 tab PO DAILY metformin 500 mg tablet extended release 24 hr 500 mg PO BID tadalafil [Cialis] 5 mg tablet 5 mg PO DAILY 30 Days Qty: 30 2RF Rx Instructions: [facility] [employer] [id number] tamsulosin 0.4 mg capsule 0.4 mg PO BEDTIME gabapentin 300 mg capsule PO multivitamin Tablet 1 tab PO DAILY Discharge Date/Time: 02/11/23 05:52
[2023-02-10 20:27] LABS: MANUAL DIFF FLAG NO
[2023-02-10 20:29] LABS: Basophils Percent Auto 0.6 % (0-2); Eosinophils Absolute Auto 0.1 X10*3/uL (0.0-0.4); Eosinophils Percent Auto 1.8 % (0-4); Hematocrit 36.9 % (42.0-52.0); Hemoglobin 12.6 g/dl (14.0-18.0); Imm Gran Abs Auto 0.01 X10*3/uL (0.00-0.03); Imm Gran Pct Auto 0.2 % (0.0-0.4); Lymphocytes Absolute Auto 1.9 X10*3/uL (1.2-4.9); Lymphocytes Percent Auto 36.7 % (20-40); Mean Corpuscular HGB Conc 34.1 g/dl (31.0-36.0); Mean Corpuscular Hemoglobin 31.4 pg (27.0-33.0); Mean Platelet Volume 12.1 fL (9.4-12.4); Monocytes Absolute Auto 0.3 X10*3/uL (0.1-1.2); Monocytes Percent Auto 6.7 % (2-11); Neutrophils Absolute Auto 2.8 x10*3/uL (2.0-8.3); Red Blood Count 4.01 X10*6/uL (4.60-5.80); Red Cell Distribution Width 14.2 % (11.0-16.0); White Blood Count 5.1 X10*3/uL (4.8-10.8)
[2023-02-10 20:47] LABS: Alanine Aminotransferase 16 U/L (0-40); Albumin Level 4.3 g/dL (3.5-5.0); Alkaline Phosphatase 97 U/L (39-117); Anion Gap 15 (12-20); Aspartate Amino Transferase 19 U/L (5-37); Bilirubin Direct 0.2 mg/dL (0.0-0.5); Bilirubin Total 0.5 mg/dL (0.0-1.0); Blood Urea Nitrogen 10 mg/dL (9-16); Calcium 9.4 mg/dL (8.4-10.2); Carbon Dioxide 25 mmol/L (22-29); Chloride 104 mmol/L (96-108); Creatinine Clr Calc Pharmacy 99.4; Estimated Glomerular Filt Rate > 60; Glucose Random 117 mg/dL (60-115); Sodium 140 mmol/L (135-145); Total Protein 7.6 g/dL (6.5-8.0)
[2023-02-10 21:04] LABS: Platelet Count 78 X10*3/uL (160-400)
[2023-02-11 03:10] LABS: Appearance Urine Clear; Color Urine Yellow; Glucose Urine UA Negative (Negative); Leukocyte Esterase Urine Negative (Negative); Nitrite Urine Negative (Negative); Specific Gravity - Urine 1.025 (1.005-1.025); Urine Blood Negative (Negative); Urine Ketones Trace mg/dL (Negative); Urine Protein Negative (Neg-Trace)
[2023-02-11] MEDS: Acetaminophen 325 MG TABLET 975 MG PO (03:11)
[2023-02-11 03:18] VITALS: BP 152/79; PULSE 45; RESP 16; TEMP 36.6; O2SAT 96
--- NOTE | 2023-02-11 04:18 | PC.NURSE ---
Pt medicated with tylenol as ordered, for testicular pain. Pt reporting that he has slow urine flow.
--- NOTE | 2023-02-11 04:21 | PC.NURSE ---
Pain reassessment, patient sleeping in bed eyes closed
--- NOTE | 2023-02-11 05:46 | PC.NURSE ---
Patient growing increasingly frustrated with wait time. This RN discussed with charge and notified but will not be able to see patient. Due to downtime and other critical patients with higher acuity, wait times have increased. Patient notified and informed that another provider would be in at 0630. Pt stated he has an appointment with his PCP today and wanted to leave. Labs are stable, pt ambulatory and a&o X4. Patient left without completing treatment.
== END 2023-02-11 05:52 | disposition left against medical advice (07) ==
PROVIDERS: Physician Assistant Medical; Emergency Provider Student in an Organized Health Care Education/Training Program; PCP Physician Assistant Medical
DX: N50.811 Right testicular pain (principal); E11.9 Type 2 diabetes mellitus without complications; I10 Essential (primary) hypertension; E78.5 Hyperlipidemia, unspecified; Z79.84 Long term (current) use of oral hypoglycemic drugs; Z79.899 Other long term (current) drug therapy
CPT/HCPCS: 36415; 76870; 80048; 80076; 81003; 85025; 93975; 99284